=== PATIENT | female | born 1990 | race Hispanic/Latino ===

== ENCOUNTER 2017-06-25 15:49 | Emergency (ER) | payer OTHER, SELFPAY ==
[2017-06-25 23:16] LABS: HIV (1/2) Antibody/Antigen Non-Reactive (NonReactive); HIV 1/2 INDEX 0.14 S/CO (<1.00); Hep C IgG Ab Non-Reactive (NonReactive); Hep C Index 0.08 S/CO (0-0.79)
[2017-06-26 16:05] LABS: Hep B Surf AB Reactive (NonReactive)
[2017-06-26 16:06] LABS: HBSAB Concentration 29769.77 mIU/mL
== END 2017-06-25 16:41 | disposition home or self-care (01) ==
LOC: BURERS 15:49
DX: S61.231A Puncture wound without foreign body of left index finger without damage to nail, initial encounter (principal); Z77.21 Contact with and (suspected) exposure to potentially hazardous body fluids; W26.8XXA Contact with other sharp object(s), not elsewhere classified, initial encounter
CPT/HCPCS: 86706; 86803; 87389; 99283